=== PATIENT | female | born 1995 | race Caucasian/White ===

== ENCOUNTER 2018-12-27 21:16 | Emergency (ER) | payer OTHER ==
[~2018-12-27] VITALS: Ht 170.2 cm; Wt 78.2 kg
[2018-12-27 21:18] VITALS: BP 116/72; TEMP 97.8
[2018-12-27] MEDS ORDERED: NORCO 325 MG-51 TAB PO (22:03)
[2018-12-27 22:22] VITALS: PULSE 89
== END 2018-12-27 22:23 | disposition home or self-care (01) ==
LOC: COL.ER 21:16
DX: M25.511 Pain in right shoulder (principal)

== ENCOUNTER 2020-02-15 18:14 | Emergency (ER) | payer OTHER ==
[~2020-02-15] VITALS: Ht 170.2 cm; Wt 75.0 kg
[~2020-02-15 18:14] MED LIST: NORCO 325 MG-51 TAB PO
[2020-02-15 18:24] VITALS: BP 108/72; TEMP 98.2
[2020-02-15 21:05] VITALS: PULSE 98
== END 2020-02-15 21:23 | disposition home or self-care (01) ==
LOC: COL.ER 18:14
DX: S61.250A Open bite of right index finger without damage to nail, initial encounter (principal); G43.909 Migraine, unspecified, not intractable, without status migrainosus; F31.9 Bipolar disorder, unspecified; Z23 Encounter for immunization; Z02.3 Encounter for examination for recruitment to armed forces; F17.210 Nicotine dependence, cigarettes, uncomplicated; W55.81XA Bitten by other mammals, initial encounter
CPT/HCPCS: 90375; J1885

== ENCOUNTER 2020-02-29 12:36 | Outpatient (RCR) | payer OTHER ==
[2020-02-29 12:48] VITALS: BP 100/67; PULSE 102; TEMP 97.9
== END 2020-05-18 | disposition still patient (30) ==
LOC: COL.ER
DX: Z20.3 Contact with and (suspected) exposure to rabies (principal); Z23 Encounter for immunization